=== PATIENT | female | born 1985 | race Caucasian/White ===

== ENCOUNTER 2017-09-30 12:20 | Emergency (ER) | payer OTHER ==
[~2017-09-30] VITALS: Ht 157.5 cm; Wt 85.3 kg
== END 2017-09-30 13:35 | disposition home or self-care (01) ==
LOC: ER 12:20
DX: T78.49XA Other allergy, initial encounter (principal); R21 Rash and other nonspecific skin eruption

== ENCOUNTER 2020-03-08 19:47 | Emergency (ER) | payer OTHER ==
[~2020-03-08] VITALS: Ht 157.5 cm; Wt 83.9 kg
[2020-03-09] MEDS ORDERED: PEPCID40 MG PO (08:07)
[2020-03-09] MEDS ORDERED: PROTONIX40 MG PO (08:07)
[2020-03-09] MEDS ORDERED: ZOFRAN8 MG PO ×2 (08:08)
== END 2020-03-09 08:29 ==
LOC: ER 19:47
DX: R10.13 Epigastric pain (principal)